=== PATIENT | male | born 1950 | race Caucasian/White ===

== ENCOUNTER → 2017-11-28 10:01 | Outpatient (CLI) | payer MEDICARE, SELFPAY | PROVIDERS: Family Provider Internal Medicine; PCP Internal Medicine; Visit Provider Physician Assistant | DX: S62.317A Displaced fracture of base of fifth metacarpal bone, left hand, initial encounter for closed fracture (principal); X58.XXXA Exposure to other specified factors, initial encounter | CPT/HCPCS: 73110 ==

== ENCOUNTER → 2017-12-13 08:58 | Outpatient (CLI) | payer MEDICARE, SELFPAY ==
--- NOTE | 2017-12-13 09:00 | RAD_ITS ---
STUDY: X-RAY - LEFT HAND REASON FOR EXAM: Fracture TECHNIQUE: 3 view(s) of the hand. COMPARISON: Radiographs 11/28/2017. FINDINGS: Normal radiocarpal articulation. Normal distal radioulnar joint. Normal visualized carpal bones. Normal carpal articulations Normal carpometacarpal articulation of the thumb. Normal second through fifth carpometacarpal joints. There is a minimally displaced fracture of the fifth metacarpal base without interval change. Normal metacarpophalangeal joint of the thumb. Normal interphalangeal joint of the thumb. Normal proximal and distal phalanges of the thumb. Normal metacarpophalangeal joints of the second through fifth fingers. Normal proximal and distal interphalangeal joints of the second through fifth fingers. Normal phalanges of the second through fifth fingers. There is an overlying cast. RAD/Hand Min 3 Views IMPRESSION: No interval change of fracture of the fifth metacarpal base. Electronically Signed: Antonio Handy MD at 12:45 EDT Tel , Service support ,
== END ==
PROVIDERS: Family Provider Internal Medicine; PCP Internal Medicine; Visit Provider Orthopaedic Surgery
DX: S62.317A Displaced fracture of base of fifth metacarpal bone, left hand, initial encounter for closed fracture (principal); X58.XXXA Exposure to other specified factors, initial encounter
CPT/HCPCS: 73130

== ENCOUNTER → 2018-01-03 09:13 | Outpatient (CLI) | payer MEDICARE, SELFPAY ==
--- NOTE | 2018-01-03 09:16 | RAD_ITS ---
STUDY: X-RAY - LEFT HAND REASON FOR EXAM: Male, 67 years old. Extra fifth carpometacarpal TECHNIQUE: 3 view(s) of the hand. COMPARISON: December 13, 2017 FINDINGS: Normal radiocarpal articulation. Normal distal radioulnar joint. Normal visualized carpal bones. Normal carpal articulations Normal carpometacarpal articulation of the thumb. Normal second through fifth carpometacarpal joints. There is visualization of a fracture line at the fifth metacarpal. There is suggestion minimal blurring of the fracture line. Normal metacarpophalangeal joint of the thumb. Normal interphalangeal joint of the thumb. Normal proximal and distal phalanges of the thumb. Normal metacarpophalangeal joints of the second through fifth fingers. Normal proximal and distal interphalangeal joints of the second through fifth fingers. Normal phalanges of the second through fifth fingers. The soft tissue structures are unremarkable. RAD/Hand Min 3 Views IMPRESSION: Minimally changed fracture of the proximal fifth metacarpal. Electronically Signed: Erna Reardon MD at 16:55 EDT Tel , Service support ,
== END ==
PROVIDERS: Family Provider Internal Medicine; PCP Internal Medicine; Referring Provider Physician Assistant; Visit Provider Physician Assistant
DX: S62.307A Unspecified fracture of fifth metacarpal bone, left hand, initial encounter for closed fracture (principal)
CPT/HCPCS: 73130

== ENCOUNTER 2018-02-05 09:30 | Outpatient (RCR) | payer MEDICARE, SELFPAY ==
--- NOTE | 2018-01-08 16:49 | HP.OTEVAL ---
Patient's Visit Information SUJEY DAHL is a 67 year old M, referred to Occupational Therapy by JENN Olguin, with a diagnosis of rigth 5th meta fax. Date of Evaluation: 01/03/18 Occupational Therapist: Jenise Pak, JUAN LUISR/Jennifer, CHT - Subjective Subjective: Pt arrives from office for custom orthosis following left 5th meta. fx. 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 Goal:: Pt will demo the ability to form a composite fist to return to performing BADLs and IADLS at PLOF by d/c. Goal:: Pt will report pain no greater than 1/10 with use of affected hand with BADLs and IADLs by d/c. Goal:: Pt will demo the ability to form a composite fist to hold and receive 10 coins without dropping coins/ and coin manipulation/money mtg. tasks by D/C. Goal:: Pt will demo understanding of orthosis use and precautions by end of 1st session. Pt will return to clinic for orthosis adjustment. - Rehabilitation General Assessment: pt arrives from office in need of custom orthosis for right 5th met.fx/ with wrist included. pt demo with limited functional ROM and some pain with active motion- This limited ROM and use of right hand increases pts need of assistance from others with BADLS and IADLS. pt would benefit from skillled OT service 1-2x week for 3-4 weeks to return pts functional ROM and strength to increase pts ind. with BADLS and IADLS by d/c Rehabilitation Potential: Good - Anticipated Interventions Anticipated Interventions: A/AAROM/PROM, Strengthening, Triggerpoint Release, Modalities, Orthoses, Fine Motor Coord/Stanislav - Visit Plan Frequency: 1-2x /Week Duration: 2-4 Weeks TEXT: Thank you for the opportunity to evaluate your patient. For Medicare and Medicare HMO plans, please review the plan of care and approve it. It will need to be FAXED BACK to us at [phone] for Medicare purposes. Please let me know if there are questions or concerns regarding this plan of care. Physician Signature: Date:
--- NOTE | 2018-02-06 10:16 | HP.OTDCSUM_ITS ---
HP - OT D/C Summary It has been my pleasure to treat SUJEY DAHL under orders from JENN Olguin, for the diagnosis of rigth 5th meta fax for a total of 7 visit(s). Please see the following information for a summary of their discharge status. - Objective Objective/Function: MP 0/90. PIP 0/91. DIP 0/60. Extrusion Process Operator. 25# L. 72 # R. Lateral. 14# in L. 18# in R. Tripod. 12# in L. 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 Goal:: Pt will demo the ability to form a composite fist to return to performing BADLs and IADLS at OF by d/c. Goal:: Pt will report pain no greater than 1/10 with use of affected hand with BADLs and IADLs by d/c. Goal:: Pt will demo the ability to form a composite fist to hold and receive 10 coins without dropping coins/ and coin manipulation/money mtg. tasks by D/C. Goal:: Pt will demo understanding of orthosis use and precautions by end of 1st session. Pt will return to clinic for orthosis adjustment. - Plan Plan: cont to increase ROM. decrease pain - D/C Information Discharge Comments: patient met all goals and was seen for 7 visits. pt. demo ability to make full composite fist, reports no more pain, increased form setter steel forms/pinch strength, and reports that he has gradually been completing more BADL's and IADL's at home. pt. reports no further concerns at this time. OT educated pt. about theraputty exercises for HEP to further increase form setter steel forms strength. If there are questions or concerns regarding this patient's occupational therapy, please fell free to call me at [phone]. Thank you for the referral of this patient. Sincerely, Jenise Pka, OTR/L, CHT
== END 2018-02-05 19:00 | disposition home or self-care (01) ==
LOC: OT 09:30
PROVIDERS: Family Provider Internal Medicine; PCP Internal Medicine; Visit Provider Physician Assistant
DX: S62.307D Unspecified fracture of fifth metacarpal bone, left hand, subsequent encounter for fracture with routine healing (principal)
CPT/HCPCS: 97035; 97110; 97140; 97165; 97760; G8987; G8988; G8989

== ENCOUNTER → 2018-02-10 09:34 | Outpatient (CLI) | payer MEDICARE, SELFPAY ==
--- NOTE | 2018-02-10 09:36 | RAD_ITS ---
STUDY: X-RAY - LEFT HAND REASON FOR EXAM: Male, 67 years old. Fracture TECHNIQUE: 3 view(s) of the hand. COMPARISON: 01/03/2018 FINDINGS: There is a healing fracture at the base of the fifth metacarpal bone. Compared with the prior exam, there is slightly increased callus formation. There is no new fracture or dislocation. There are no radiodense foreign bodies. RAD/Hand Min 3 Views IMPRESSION: Slight increased callus formation and the previously seen healing fracture at the base of the fifth metacarpal. Electronically Signed: Roney Badillo, at 16:49 EST Tel , Service support ,
== END ==
PROVIDERS: Family Provider Internal Medicine; PCP Internal Medicine; Referring Provider Physician Assistant; Visit Provider Physician Assistant
DX: S62.317A Displaced fracture of base of fifth metacarpal bone, left hand, initial encounter for closed fracture (principal); X58.XXXA Exposure to other specified factors, initial encounter
CPT/HCPCS: 73130

== ENCOUNTER 2020-01-30 21:47 | Emergency (ER) | payer MEDICARE, SELFPAY ==
[2020-01-30 21:48] VITALS: PULSE 79; RESP 23; TEMP 37; O2SAT 96; BMI 24.7
[2020-01-30 21:51] VITALS: BP 121/79; PULSE 80; RESP 18; O2SAT 96
--- NOTE | 2020-01-30 22:14 | EKG12_ITS ---
Test Reason : WEAKNESS Blood Pressure : / mmHG Vent. Rate : 080 BPM Atrial Rate : 080 BPM P-R Int : 122 ms QRS Dur : 096 ms QT Int : 394 ms P-R-T Axes : 042 -33 -50 degrees QTc Int : 454 ms Normal sinus rhythm Left axis deviation ST & T wave abnormality, consider lateral ischemia Abnormal ECG Confirmed by ISAAC FAJARDO, EVELINA ([id number]), news copy editor EARL OCONNELL ([id number]) on 02/02/2020 11:23:46 AM Referred By: DIVYA Confirmed By:EVELINA GRAY MD
--- NOTE | 2020-01-30 22:15 | ED.DCSUM_ITS ---
- ER Visit Summary Date of Service: 01/30/20 Chief Complaint: General weakness and headache History of Present Illness: The patient is a 69 M who presents with general weakness and headache that has been gradually getting worse over the past week. Patient states he feels weak all over. Patient states his headache is generalized. Patient states nothing makes it better or worse. Patient denies any trauma or injury. Patient denies any fevers or chills. Patient denies any nausea or vomiting. Patient admits to a mild cough but denies any sputum. Patient denies any chest pain or shortness of breath. Physical Examination: Vital signs are stable. Patient is afebrile here. Pat ient is in no acute distress. Oral mucosa is pink and moist. Neck is supple. Trachea is midline. There is no JVD. Heart was regular rate and rhythm. Lungs are clear and equal bilaterally. Abdomen is soft. Bowel sounds are normal. There is no tenderness. Cranial nerves II through XII are intact. Strength is 5/5 bilaterally upper and lower extremities. There are no sensory deficits noted. Extremities are intact. There is no calf tenderness or edema. Test Results: EKG showed normal sinus rhythm with a rate of 80. There are no acute ST or T wave changes. This was unchanged compared to previous EKG dated 12/11/2016. CBC and comprehensive metabolic profile was essentially within normal limits. Urinalysis does not show any evidence of urinary tract infection . Troponin was normal. CT scan of the brain was obtained. There is no acute intracranial abnormality noted. A send out Covid test was obtained and is pending. Emergency Department Course and Treatment: Patient was given IV fluids, Reglan, and Benadryl. Patient had minimal improvement of his headache with this. Patient was feeling better on reevaluation. Patient was able to ambulate without difficulty. Patient was given a prescription for short course of Sloan for his headache. Patient was instructed to follow-up with his primary care physician in 5 to 7 days. Patient understood and was agreeable with the plan. All questions were answered. Disposition: Discharge home Impression: 1. General weakness 2. Headache This note was generated with [employer] dictation software. It may contain incorrect words, spelling, and punctuation that were not noted in review of the chart prior to signing ED Disposition - Plan for ED Patient: Disposition: Home or Assisted Living Diagnosis: General weakness, Headache Instructions: ED Weakness [facility] Prescriptions: Hydrocodone Bitart/Apap 5-325 [Sloan 5MG-325MG] 1 tab PO Q6H PRN PRN 3 Days #10 tab PRN Reason: Pain Prescription Printed Referrals: Telly Araiza MD [Primary Care Provider] - 3-5 Days
[2020-01-30] MEDS: 0.9% Normal Saline 1,000 ML 999 ML IV (22:22)
[2020-01-30] MEDS: DiphenhydrAMINE 50 MG/ML Syringe 25 MG IV (22:22)
[2020-01-30] MEDS: Metoclopramide 10 MG/2 ML Vial IV (22:22)
[2020-01-30 22:25] LABS: Absolute Lymphocyte Count 0.93 X10^3/uL (0.83-4.51); Absolute Neutrophil Count 8.9 X10^3/uL (2.0-7.7); Basophil# 0.01 X10^3/uL; Basophil% 0.1 % (0-1); Hematocrit 46.9 % (40-54); Hemoglobin 15.4 g/dL (13.0-16.5); Lymphocyte # 0.93 X10^3/ul (4.0); Lymphocyte % 8.7 % (19-41); Mean Corp Hgb Conc 32.8 g/dL (32-36); Mean Corpuscular Hgb 30.6 pg (27.0-32.0); Mean Corpuscular Volume 93.1 fL (80-94); Mean Platelet Vol. 11.2 fl (6.2-12.0); Monocyte# 0.77 X10^3/uL; Monocyte% 7.2 % (0-10); NRBC Flagged by Analyzer 0 % (0-5); Neutrophil % 83.2 % (47-70); Platelet Count 192 K/mm3 (150-450); RBC Distribution Width CV 12.8 % (11.6-14.6); Red Blood Count 5.04 M/mm3 (4.6-6.2); White Blood Count 10.7 K/mm3 (4.4-11.0)
--- NOTE | 2020-01-30 22:35 | CT_ITS ---
STUDY: CT BRAIN WITHOUT CONTRAST REASON FOR EXAM: Male, 69 years old. GENERAL WEAKNESS X 1 WEEK. RADIATION DOSAGE (If Supplied By Facility): CTDIvol = ( 44.99 ) mGy, DLP = ( 846.73 ) mGycm TECHNIQUE: Transaxial CT imaging of the brain was performed without administration of intravenous contrast material. Individualized dose optimization techniques were used for this CT. COMPARISON: No relevant priors. FINDINGS: Normal soft tissue structures. Normal calvarium. Normal size ventricles and extra-axial spaces for the patient''s age. Mild periventricular white matter ischemic changes.. Normal basal ganglia and thalami. Normal brainstem. Normal cerebellum. There is no intracranial hemorrhage. There are no findings of an acute ischemic infarction. Normal visualized paranasal sinuses. CT/Brain/Head without Contrast IMPRESSION: Mild periventricular white matter ischemic change. No evidence for acute bleed. If concern for acute infarct MRI recommended. Electronically Signed: Suman Hines MD at 22:46 EDT , Service support ,
[2020-01-30 22:39] LABS: ALB/GLOB Ratio 0.6 RATIO (0.9-2.4); AST(SGOT) 36 U/L (15-37); Alanine Aminotransfer ALT/SGPT 30 U/L (16-61); Albumin, Serum 2.8 g/dL (3.2-5.0); Alkaline Phosphatase 61 U/L (45-117); Anion Gap 7 (5-15); BUN 18 mg/dL (7-18); BUN/Creat Ratio 18.9 RATIO (10-20); Calcium,Total 8.2 mg/dL (8.5-10.1); Chloride 101 mmol/L (98-107); Creatinine, Serum 0.95 mg/dL (0.70-1.30); EST Glomerular Filtration Rate 83 mL/min (>60); Est Glom Filt Rate - Afr Amer 101 mL/min (>60); Estimated Creatinine Clearance 80.55 ml/min; Globulin 4.6 g/dL (2.2-4.2); Glucose 121 mg/dL (74-106); Potassium 3.5 mmol/L (3.5-5.1); Protein, Total 7.4 g/dL (6.4-8.2); Sodium Level 135 mmol/L (136-145)
[2020-01-30 22:43] LABS: Red Blood Cells-Urine 0 SEEN /hpf (0-5)
[2020-01-30 22:45] LABS: Color, Urine Yellow (Yellow); Glucose, Dipstick Normal (Normal); Ketone-Dipstick 5 mg/dl (Negative); Leukocyte Esterase-Dipstick 25 /ul (Negative); Nitrite-Dipstick Negative (Negative); Occult Blood-Urine 25 /ul (Negative); Protein-Dipstick 30 mg/dl (Negative); Specific Gravity, Urine 1.015 (1.002-1.030); Urine Clarity Clear (Clear); Urine Urobilinogen 8 mg/dl (Normal)
[2020-01-30 22:50] LABS: Urine Bilirubin Dipstick 1 mg/dL (Negative)
[2020-01-30 22:59] LABS: Bacteria 2+ /hpf (None Seen); Mucous, Urine 1+ /hpf (<or=2+); Squamous Epithelial Cells - UA 0 SEEN /hpf (0-5); White Blood Cells 0-5 SEEN /hpf (0-5)
[2020-01-30 23:49] VITALS: BP 123/73; PULSE 76; RESP 30; O2SAT 95
[2020-01-31 00:34] VITALS: BP 127/73; PULSE 74; RESP 18; O2SAT 94
== END 2020-01-31 00:35 | disposition home or self-care (01) ==
PROVIDERS: Emergency Provider Emergency Medicine; PCP Internal Medicine
DX: R53.1 Weakness (principal); R51.9 Headache, unspecified
CPT/HCPCS: 36415; 70450; 80053; 81001; 84484; 85025; 93005; 96361; 96374; 96375; 99285; A4216